=== PATIENT | female | born 1955 | race Caucasian/White ===

== ENCOUNTER 2022-06-27 20:27 | Emergency (ER) | payer MEDICARE, MEDICAID ==
[~2022-06-27] VITALS: Ht 160 cm; Wt 82.0 kg
[2022-06-27 21:57] LABS: BASOPHILS % (AUTO) 0.8 % (0.0-2.0); EOSINOPHILS % (AUTO) 2.3 % (1.0-6.0); HEMATOCRIT 33.3 % (36-46); HEMOGLOBIN 10.7 g/dL (12.0-16.0); LYMPHOCYTES % (AUTO) 12.5 % (22.0-44.0); MEAN CORPUSCULAR HGB CONC 32.2 G/dL (31.0-37.0); MEAN CORPUSCULAR VOLUME 96 fL (80-100); MONOCYTES # (AUTO) 0.5 K/uL (0.1-1.0); MONOCYTES % (AUTO) 6.2 % (2.0-9.0); NEUTROPHILS # (AUTO) 6.2 K/uL (1.8-7.7); NEUTROPHILS % (AUTO) 78.2 % (40.0-70.0); PLATELET COUNT (AUTO) 227 K/uL (150-450); RED BLOOD CELL COUNT(AUTO) 3.47 MIL/uL (4.00-5.20); RED CELL DISTRIBUTION WIDTH 15.5 % (11.5-14.5)
[2022-06-27 22:04] LABS: CALCIUM, TOTAL 9.1 mg/dL (8.8-10.5); POTASSIUM 3.8 mmol/L (3.5-5.1)
[2022-06-28 01:23] VITALS: BP 129/56
== END 2022-06-28 01:24 | disposition home or self-care (01) ==
LOC: EMS 20:36
DX: M25.562 Pain in left knee (principal); M25.552 Pain in left hip; N18.6 End stage renal disease; Z99.2 Dependence on renal dialysis; Z98.890 Other specified postprocedural states
CPT/HCPCS: 73503; 80048; 82962; 85025; 99284

== ENCOUNTER 2025-02-14 16:45 | Emergency (ER) | payer MEDICARE, MEDICAID ==
[~2025-02-14] VITALS: Ht 165.1 cm; Wt 104.5 kg
[~2025-02-14 16:45] MED LIST: AMLO-257 PO; ASPI-1444 PO; ATOR20TA PO; CARV-165 PO; CLOP75TA32 PO; DOCU100C33 PO; FOLI0.8T22 PO; LATA5DRO OU; LEVO25TA9 PO; PANT40TA54 PO
[2025-02-14 17:02] VITALS: TEMP 97.8
[2025-02-14 19:50] VITALS: BP 119/70; PULSE 69; RESP 16; O2SAT 98
== END 2025-02-14 22:30 | disposition left against medical advice (07) ==
LOC: EMS 16:45
DX: I50.9 Heart failure, unspecified (principal); N18.6 End stage renal disease; L40.9 Psoriasis, unspecified; E11.22 Type 2 diabetes mellitus with diabetic chronic kidney disease; Z99.2 Dependence on renal dialysis; Z79.899 Other long term (current) drug therapy; Z79.82 Long term (current) use of aspirin; Z79.02 Long term (current) use of antithrombotics/antiplatelets; Z98.890 Other specified postprocedural states; W18.2XXA Fall in (into) shower or empty bathtub, initial encounter; Y93.89 Activity, other specified; Y92.89 Other specified places as the place of occurrence of the external cause; Y99.8 Other external cause status
CPT/HCPCS: 99283; Z7502

== ENCOUNTER 2025-04-28 02:24 | Inpatient (IN) | payer MEDICARE, MEDICAID ==
[2025-04-28] VITALS (13 sets, daily range): BP systolic 103–162; BP diastolic 46–79; PULSE 60–80; RESP 18–22; TEMP 97.7–98.1; O2SAT 93–98
[~2025-04-28] VITALS: Ht 160 cm; Wt 128.0 kg
[2025-04-28 04:28] LABS: PLATELET COUNT (AUTO) 201 K/uL (150-450); RED BLOOD CELL COUNT(AUTO) 3.13 MIL/uL (4.00-5.20); RED CELL DISTRIBUTION WIDTH 15.7 % (11.5-14.5); WHITE BLOOD COUNT (AUTO) 9.7 K/uL (4.5-11.0)
[2025-04-28 04:37] LABS: CALCIUM, TOTAL 8.3 mg/dL (8.8-10.5); CREATININE 10.37 mg/dL (0.60-1.30); GLOMERULAR FILTR. RATE CALC 4 mL/min (>60); GLUCOSE,RANDOM 141 mg/dL (70-110); SODIUM SERUM 134 mmol/L (136-145)
[2025-04-28 04:45] LABS: ASPARTATE AMINOTRANSFERASE 17.0 U/L (15-37); CREATINE KINASE, TOTAL ONLY 47.0 U/L (26-192); TOTAL PROTEIN, SERUM 7.1 g/dL (6.4-8.2)
[2025-04-28 04:48] LABS: TROPONIN I-HIGH SENSITIVITY 26 ng/L (<51)
[2025-04-28 04:49] LABS: UREA NITROGEN, BLOOD 118 mg/dL (7-18)
[2025-04-28] MEDS: FUROSEMIDE 40 MG/4 ML VIAL IVP ONE (05:19)
[2025-04-28] MEDS ORDERED: ONDANSETRON HCL 4 MG/2 ML VIAL IVP PRN (05:30)
[2025-04-28] MEDS: SODIUM ZIRCONIUM CYCLOSILICATE 10 GM POWDER PACKET PO ONE (05:42)
[2025-04-28 07:31] LABS: GLUCOMETER DEV NAME(LOC) ER.7; GLUCOSE,POINT OF CARE 100 MG/DL (70-110)
[2025-04-28] MEDS: DOCUSATE SODIUM 100 MG CAPSULE PO SCH (08:11)
[2025-04-28] MEDS: HEPARIN SODIUM,PORCINE 5,000 UNITS/ML VIAL SQ SCH (08:12)
[2025-04-28] MEDS: FAMOTIDINE 20 MG TABLET PO SCH (08:12)
[2025-04-28] MEDS: SEVELAMER CARBONATE 800 MG TABLET PO SCH (12:36)
[2025-04-29] VITALS (14 sets, daily range): BP systolic 91–167; BP diastolic 44–74; PULSE 61–88; RESP 17–19; TEMP 98.1–98.6; O2SAT 94–98
[2025-04-29 11:14] LABS: PLATELET COUNT (AUTO) 191 K/uL (150-450); RED BLOOD CELL COUNT(AUTO) 3.21 MIL/uL (4.00-5.20); RED CELL DISTRIBUTION WIDTH 15.2 % (11.5-14.5); WHITE BLOOD COUNT (AUTO) 9.0 K/uL (4.5-11.0)
[2025-04-29] MEDS ORDERED: SODIUM CHLORIDE 0.9% 2,000 ML ONE (11:20)
[2025-04-29 12:33] LABS: CALCIUM, TOTAL 8.5 mg/dL (8.8-10.5); CREATININE 7.08 mg/dL (0.60-1.30); GLOMERULAR FILTR. RATE CALC 6.0 mL/min (>60); GLUCOSE,RANDOM 145.0 mg/dL (70-110); SODIUM SERUM 137.0 mmol/L (136-145); UREA NITROGEN, BLOOD 70.0 mg/dL (7-18)
[2025-04-29] MEDS: ACETAMINOPHEN 325 MG TABLET PO PRN (18:05)
[2025-04-29] MEDS ORDERED: INSULIN LISPRO 100 UNITS/ML SQ PRN (23:15)
[2025-04-29] MEDS ORDERED: DEXTROSE 50%-WATER 25 GM/50 ML SYRINGE IVP PRN (23:15)
[2025-04-30 00:06] VITALS: BP 119/58; PULSE 89; RESP 19; TEMP 99; O2SAT 98
[2025-04-30 04:18] VITALS: BP 119/62; PULSE 90; RESP 20; TEMP 98.1; O2SAT 97
[2025-04-30 06:46] LABS: PLATELET COUNT (AUTO) 199 K/uL (150-450); RED BLOOD CELL COUNT(AUTO) 3.00 MIL/uL (4.00-5.20); RED CELL DISTRIBUTION WIDTH 15.4 % (11.5-14.5); WHITE BLOOD COUNT (AUTO) 9.2 K/uL (4.5-11.0)
[2025-04-30 06:53] LABS: CALCIUM, TOTAL 8.4 mg/dL (8.8-10.5); CREATININE 4.77 mg/dL (0.60-1.30); GLOMERULAR FILTR. RATE CALC 9.0 mL/min (>60); GLUCOSE,RANDOM 137.0 mg/dL (70-110); SODIUM SERUM 140.0 mmol/L (136-145); UREA NITROGEN, BLOOD 36.0 mg/dL (7-18)
[2025-04-30 07:46] VITALS: BP 118/47; PULSE 92; RESP 19; TEMP 98.8; O2SAT 96
[2025-04-30 08:41] LABS: GLUCOMETER DEV NAME(LOC) 5N.1D; GLUCOSE,POINT OF CARE 132 MG/DL (70-110)
[2025-04-30 10:46] VITALS: BP 130/54; PULSE 95; RESP 19; TEMP 98.6; O2SAT 97
[2025-04-30 15:11] LABS: GLUCOMETER DEV NAME(LOC) 5S.1E; GLUCOSE,POINT OF CARE 136 MG/DL (70-110)
[2025-04-30 15:33] VITALS: BP 117/47; PULSE 90; RESP 20; TEMP 98.2; O2SAT 97
[2025-04-30 15:50] VITALS: O2SAT 95
== END 2025-04-30 18:40 | disposition home or self-care (01) | DRG 640 ==
LOC: EMS 02:30 → EDH 05:23 → 5N 08:50
PROVIDERS: ADMIT Internal Medicine; ATTEND Internal Medicine
PROC: 5A1D70Z Performance of Urinary Filtration, Intermittent, Less than 6 Hours Per Day (ICD-10-PCS; principal; 2025-04-28)
PROC: 5A1D70Z Performance of Urinary Filtration, Intermittent, Less than 6 Hours Per Day (ICD-10-PCS; 2025-04-29)
DX: E87.5 Hyperkalemia (principal); N18.6 End stage renal disease; R53.2 Functional quadriplegia; I13.2 Hypertensive heart and chronic kidney disease with heart failure and with stage 5 chronic kidney disease, or end stage renal disease; D63.1 Anemia in chronic kidney disease; E11.22 Type 2 diabetes mellitus with diabetic chronic kidney disease; I50.9 Heart failure, unspecified; E66.01 Morbid (severe) obesity due to excess calories; L40.9 Psoriasis, unspecified; G47.33 Obstructive sleep apnea (adult) (pediatric); F32.9 Major depressive disorder, single episode, unspecified; E87.20 Acidosis, unspecified; Z79.899 Other long term (current) drug therapy
CPT/HCPCS: 71045; 80048; 80076; 82550; 82962; 83880; 84484; 85025; 85610; 85730; 87081; 87340; 90935; 93005; 96374; 99291; J1644; J1938; J7030; 36415-L1; 36415-TC

== ENCOUNTER 2025-07-05 18:11 | Inpatient (IN) | payer MEDICARE, MEDICAID ==
[~2025-07-05] VITALS: Ht 160 cm; Wt 131.9 kg
[2025-07-05 18:53] LABS: PLATELET COUNT (AUTO) 189 K/uL (150-450); RED BLOOD CELL COUNT(AUTO) 3.72 MIL/uL (4.00-5.20); RED CELL DISTRIBUTION WIDTH 16.5 % (11.5-14.5); WHITE BLOOD COUNT (AUTO) 7.8 K/uL (4.5-11.0)
[2025-07-05 19:11] LABS: LACTIC ACID 0.9 mmol/L (0.4-2.0)
[2025-07-05 19:12] LABS: TROPONIN I-HIGH SENSITIVITY 20 ng/L (<51)
[2025-07-05 19:14] LABS: CALCIUM, TOTAL 8.7 mg/dL (8.8-10.5); CREATININE 8.52 mg/dL (0.60-1.30); GLOMERULAR FILTR. RATE CALC 5 mL/min (>60); GLUCOSE,RANDOM 115 mg/dL (70-110); SODIUM SERUM 137 mmol/L (136-145); UREA NITROGEN, BLOOD 82 mg/dL (7-18)
[2025-07-05 19:17] LABS: RBC MORPHOLOGY COMMENT NORMAL RBC MORPH
[2025-07-05] MEDS: CALCIUM GLUCONATE 100 MG/ML 10 ML IVP ONE (19:28)
[2025-07-05] MEDS: ONDANSETRON HCL 4 MG/2 ML VIAL IVP ONE (19:28)
[2025-07-05] MEDS: INSULIN REGULAR, HUMAN 100 UNITS/ML IVP ONE (19:29)
[2025-07-05] MEDS: SODIUM BICARBONATE [ADULT] 8.4% 50 MEQ/50 ML SYRINGE IVP ONE (19:30)
[2025-07-05] MEDS: DEXTROSE 50%-WATER 25 GM/50 ML SYRINGE IVP ONE (19:30)
[2025-07-05] MEDS ORDERED: ACETAMINOPHEN 325 MG TABLET PO PRN (19:45)
[2025-07-05] MEDS ORDERED: BISACODYL 10 MG RECTAL RECTAL SUPPOSITORY PR PRN (19:45)
[2025-07-05] MEDS ORDERED: INSULIN LISPRO 100 UNITS/ML SQ PRN (19:45)
[2025-07-05] MEDS ORDERED: ONDANSETRON HCL 4 MG/2 ML VIAL IVP PRN (19:45)
[2025-07-05] MEDS ORDERED: OxyCODONE HCL/ACETAMINOPHEN 5-325 MG TABLET PO PRN (19:45)
[2025-07-05] MEDS ORDERED: DEXTROSE 50%-WATER 25 GM/50 ML SYRINGE IVP PRN (19:45)
[2025-07-05] MEDS: SODIUM ZIRCONIUM CYCLOSILICATE 10 GM POWDER PACKET PO ONE (19:59)
[2025-07-05] MEDS: DOCUSATE SODIUM 100 MG CAPSULE PO SCH (20:11)
[2025-07-05 22:45] VITALS: BP 134/44; PULSE 71; RESP 18; TEMP 97.8
[2025-07-05 22:49] VITALS: BP 138/52; PULSE 63; RESP 16; TEMP 98.6; O2SAT 96
[2025-07-05 23:15] VITALS: BP 116/59; PULSE 72; RESP 16
[2025-07-05 23:38] VITALS: BP 136/53; PULSE 67; RESP 18; TEMP 97.8; O2SAT 97
[2025-07-05 23:45] VITALS: BP 136/50; PULSE 72; RESP 18
[2025-07-06] VITALS (10 sets, daily range): BP systolic 114–149; BP diastolic 35–83; PULSE 60–80; RESP 16–18; TEMP 97.7–98.2; O2SAT 95–100
[2025-07-06] MEDS: HEPARIN SODIUM,PORCINE 5,000 UNITS/ML VIAL SQ SCH
[2025-07-06 06:27] LABS: PLATELET COUNT (AUTO) 152 K/uL (150-450); RED BLOOD CELL COUNT(AUTO) 3.41 MIL/uL (4.00-5.20); RED CELL DISTRIBUTION WIDTH 16.3 % (11.5-14.5); WHITE BLOOD COUNT (AUTO) 6.1 K/uL (4.5-11.0)
[2025-07-06 06:30] LABS: CALCIUM, TOTAL 8.8 mg/dL (8.8-10.5); CREATININE 5.11 mg/dL (0.60-1.30); GLOMERULAR FILTR. RATE CALC 8.0 mL/min (>60); GLUCOSE,RANDOM 84.0 mg/dL (70-110); SODIUM SERUM 136.0 mmol/L (136-145); UREA NITROGEN, BLOOD 43.0 mg/dL (7-18)
[2025-07-06] MEDS: ASPIRIN 81 MG CHEWABLE TABLET PO SCH (08:16)
[2025-07-06] MEDS: FAMOTIDINE 20 MG TABLET PO SCH (08:17)
[2025-07-06 12:51] LABS: GLUCOMETER DEV NAME(LOC) 5S.1E; GLUCOSE,POINT OF CARE 94 MG/DL (70-110)
[2025-07-06 12:51] LABS: GLUCOMETER DEV NAME(LOC) 5S.1E; GLUCOSE,POINT OF CARE 101 MG/DL (70-110)
[2025-07-06 12:51] LABS: GLUCOMETER DEV NAME(LOC) 5S.1E; GLUCOSE,POINT OF CARE 125 MG/DL (70-110)
[2025-07-07] VITALS (13 sets, daily range): BP systolic 138–161; BP diastolic 53–95; PULSE 60–74; RESP 18–19; TEMP 97.2–98.4; O2SAT 93–98
[2025-07-07 03:01] LABS: GLUCOMETER DEV NAME(LOC) 5S.1E; GLUCOSE,POINT OF CARE 99 MG/DL (70-110)
[2025-07-07 03:01] LABS: GLUCOMETER DEV NAME(LOC) 5S.1E; GLUCOSE,POINT OF CARE 114 MG/DL (70-110)
[2025-07-07 09:31] LABS: PLATELET COUNT (AUTO) 153 K/uL (150-450); RED BLOOD CELL COUNT(AUTO) 3.17 MIL/uL (4.00-5.20); RED CELL DISTRIBUTION WIDTH 15.7 % (11.5-14.5); WHITE BLOOD COUNT (AUTO) 5.7 K/uL (4.5-11.0)
[2025-07-07 09:55] LABS: CALCIUM, TOTAL 8.3 mg/dL (8.8-10.5); CREATININE 4.52 mg/dL (0.60-1.30); GLOMERULAR FILTR. RATE CALC 10.0 mL/min (>60); GLUCOSE,RANDOM 80.0 mg/dL (70-110); SODIUM SERUM 136.0 mmol/L (136-145); UREA NITROGEN, BLOOD 38.0 mg/dL (7-18)
== END 2025-07-07 15:40 | disposition home or self-care (01) | DRG 640 ==
LOC: EMS 18:11 → EDH 19:37 → 5N 22:20
PROVIDERS: ADMIT Internal Medicine; ATTEND Internal Medicine
PROC: 5A1D70Z Performance of Urinary Filtration, Intermittent, Less than 6 Hours Per Day (ICD-10-PCS; principal; 2025-07-05)
PROC: 5A1D70Z Performance of Urinary Filtration, Intermittent, Less than 6 Hours Per Day (ICD-10-PCS; 2025-07-07)
DX: E87.5 Hyperkalemia (principal); N18.6 End stage renal disease; R53.2 Functional quadriplegia; I13.2 Hypertensive heart and chronic kidney disease with heart failure and with stage 5 chronic kidney disease, or end stage renal disease; E44.0 Moderate protein-calorie malnutrition; E11.22 Type 2 diabetes mellitus with diabetic chronic kidney disease; D64.9 Anemia, unspecified; Z99.2 Dependence on renal dialysis; E66.01 Morbid (severe) obesity due to excess calories; L40.50 Arthropathic psoriasis, unspecified; Z68.43 Body mass index [BMI] 50.0-59.9, adult; E11.40 Type 2 diabetes mellitus with diabetic neuropathy, unspecified; E78.5 Hyperlipidemia, unspecified; G47.33 Obstructive sleep apnea (adult) (pediatric); Z79.82 Long term (current) use of aspirin; Z91.199 Patient's noncompliance with other medical treatment and regimen due to unspecified reason; Z79.899 Other long term (current) drug therapy
CPT/HCPCS: 71045; 80048; 82962; 83605; 83880; 84132; 84484; 85025; 87040; 87081; 90935; 93005; 99291; J0360; J0610; J1644; J1815; J2405; J3490; 36415-L1; 36415-TC